=== PATIENT | female | born 1945 | race Caucasian/White ===

== ENCOUNTER 2017-01-10 07:15 | Emergency (ER) | payer MEDICARE, OTHER ==
[~2017-01-10 07:15] MED LIST: FOLIC ACID0.4 MG PO; FOLIC ACID1 MG PO; GELNIQUE92 GM TD; HUMALOG100 U/ML SQ; LANTUS SOL100 UNIT/1 SC; LEXAPRO10 M1 PO; LISINOPRIL10 MG PO; PREVACID30 MG PO; TYLENOL W/CODEI1 TAB PO; VICODIN 5/500 T1 TAB PO; VITAMIN C PO; VITAMIN D5000 UNI2 PO; XIFAXAN550 MG PO; ZINC15 M1 PO
[2017-01-10] MEDS ORDERED: ZYLOPRIM100 M1 PO (07:25)
[2017-01-10] MEDS ORDERED: PROTONIX40 M2 PO (07:25)
[2017-01-10] MEDS ORDERED: bumex PO (07:26)
[2017-01-10] MEDS ORDERED: METOPROLOL TART25 M1 PO (07:26)
[2017-01-10] MEDS ORDERED: MYFORTIC PO (07:27)
[2017-01-10] MEDS ORDERED: ZORTRESS PO (07:27)
[2017-01-10] MEDS ORDERED: REMERON15 M1 PO (07:27)
[2017-01-10] MEDS ORDERED: SODIUM BICARBO650 M1 PO (07:28)
== END 2017-01-10 10:15 ==
LOC: EDMED 07:15
DX: K94.03 Colostomy malfunction (principal); E11.9 Type 2 diabetes mellitus without complications; I10 Essential (primary) hypertension; Z85.3 Personal history of malignant neoplasm of breast; Z87.19 Personal history of other diseases of the digestive system; Z94.4 Liver transplant status; Z98.890 Other specified postprocedural states; Z79.4 Long term (current) use of insulin